=== PATIENT | female | born 1960 | race Caucasian/White ===

== ENCOUNTER → 2017-08-21 | Outpatient (CLI) | payer BC ==
[2017-08-21 07:00] LABS: HCT 44.6 % (34.0-46.0); HGB 14.7 gm/dL (11.4-16.0); MCH 29.1 pg (25.0-35.0); MCHC 32.9 g/dL (31.0-37.0); MCV 88.5 fL (80.0-100.0); Platelet Count 401 k/uL (150-450); RBC 5.04 m/uL (3.80-5.40); WBC 11.6 k/uL (3.8-10.6)
[2017-08-21 07:28] LABS: ALT 76 U/L (9-52); AST 52 U/L (14-36); Albumin 4.7 g/dL (3.5-5.0); Alkaline Phosphatase 121 U/L (38-126); Anion Gap 15 mmol/L; Blood Urea Nitrogen 14 mg/dL (7-17); Calcium 10.2 mg/dL (8.4-10.2); Carbon Dioxide 28 mmol/L (22-30); Chloride 98 mmol/L (98-107); Glucose 110 mg/dL (74-99); Potassium 4.4 mmol/L (3.5-5.1); Sodium 141 mmol/L (137-145)
[2017-08-21 12:05] LABS: Folate, Serum 22.8 ng/mL
[2017-08-21 21:16] LABS: Hemoglobin A1C 5.8 % (4.0-6.0)
== END | disposition home or self-care (01) ==
LOC: LABWHC1 06:42
PROVIDERS: ATTEND Surgery
DX: E66.01 Morbid (severe) obesity due to excess calories (principal)
CPT/HCPCS: 36415; 80053; 82607; 82746; 83036; 84425; 85027; 93005

== ENCOUNTER 2017-09-06 08:08 | Day surgery (SDC) | payer BC ==
[2017-09-01 11:56] VITALS: BMI 40.6
[~2017-09-06 08:08] MED LIST: LACTATED RINGERS 1,000 ML IV SCH; LIDOCAINE 1% 20 ML VIAL (10MG/ML) FOR IV START INTRADERMA PRN
[2017-09-06 08:39] VITALS: TEMP 96
[2017-09-06] MEDS ORDERED: PROPOFOL 10 MG/ML 20 ML VIAL IV ONE (09:24)
[2017-09-06] MEDS ORDERED: MIDAZOLAM 2 MG/2 ML VIAL ONE (09:24)
[2017-09-06] MEDS ORDERED: LIDOCAINE 1% INJ 10MG/ML (20 ML MDV) ONE (09:24)
[2017-09-06] MEDS ORDERED: KETAMINE 10 MG/ML 20 ML VIAL ONE (09:24)
[2017-09-06] MEDS ORDERED: fentaNYL (PF) 50 MCG/ML 2 ML AMP ONE (09:24)
--- NOTE | 2017-09-06 09:30 | P.GSHP ---
History of Present Illness H&P Date: 09/06/17 Chief Complaint: GERD, screening colonoscopy This a 57-year-old female referred from Dr. Kerns. Patient presents today for EGD and colonoscopy. She's had issues with GERD. Past Medical History Past Medical History: Osteoarthritis (OA) History of Any Multi-Drug Resistant Organisms: None Reported Additional Past Surgical History / Comment(s): splenectomy Past Anesthesia/Blood Transfusion Reactions: No Reported Reaction, Motion Sickness Smoking Status: Never smoker - Past Family History Mother Family Medical History: No Reported History Medications and Allergies Home Medications Medication Instructions Recorded Confirmed Type Cholecalciferol [Vitamin D3] 5,000 unit PO DAILY 07/26/17 09/06/17 History Turmeric Root Extract [Turmeric] 500 mg PO DAILY 07/26/17 09/06/17 History Loratadine [Claritin] 10 mg PO DAILY 09/01/17 09/06/17 History Lutein 25 mg PO DAILY 09/01/17 09/06/17 History Vit C/E/Zn/Coppr/Lutein/Zeaxan 1 each PO DAILY 09/01/17 09/06/17 History [Preservision Areds 2 Softgel] Allergies Allergy/AdvReac Type Severity Reaction Status Date / Time Penicillins Allergy Rash/Hives Verified 09/06/17 08:40 Surgical - Exam Vital Signs Temp Pulse Resp BP Pulse Ox 96.0 F L 114 H 16 173/96 96 09/06/17 08:37 09/06/17 08:37 09/06/17 08:37 09/06/17 08:37 09/06/17 08:37 - General well developed, no distress - Eyes PERRL - ENT normal pinna - Neck no masses - Respiratory normal expansion - Cardiovascular Rhythm: regular - Abdomen Abdomen: soft, non tender Assessment and Plan Assessment: GERD we'll perform EGD. We'll also perform screening colonoscopy.
--- NOTE | 2017-09-06 09:55 | P.OP ---
Date of Procedure: 09/06/17 Preoperative Diagnosis: GERD Screening colonoscopy Postoperative Diagnosis: Antral gastritis Small hiatal hernia Mild esophagitis Hemorrhoids Procedure(s) Performed: EGD Colonoscopy Anesthesia: MAC Surgeon: Payam Shelley Pathology: other (Antrum, esophagus) Condition: stable Disposition: PACU Description of Procedure: The patient's placed on the endoscopy table in the lateral position. She received IV sedation. Digital rectal exam was performed which revealed external hemorrhoids. The flexible colonoscope was then placed patient anus passed throughout the entire colon. The ileocecal valve was visually is. The cecum, ascending and transverse colon appeared normal. In the descending; was a few scattered diverticula. Scope was then brought back the rectum and this appeared normal. Scope was withdrawn for patient. Next the gastroscope placed oropharynx passed in the esophagus and stomach. The scope was then placed through the pylorus. The first and second portion of the duodenum. Normal. Scope was then brought back the antrum and this was mildly inflamed. A biopsies performed. The scope was unretroflexed and remainder stomach appeared normal. There was a small hiatal hernia. The GE junction was at 47 is. The distal esophagus appeared mildly inflamed a biopsies performed. The proximal esophagus appeared normal. Scope was withdrawn for patient.
[2017-09-06 10:26] VITALS: BP 144/75; PULSE 73; RESP 16
== END 2017-09-06 10:51 | disposition home or self-care (01) ==
LOC: ORWHC2ENDO 08:08
PROVIDERS: ATTEND Surgery
DX: Z12.11 Encounter for screening for malignant neoplasm of colon (principal); K57.30 Diverticulosis of large intestine without perforation or abscess without bleeding; K20.9 Esophagitis, unspecified; K44.9 Diaphragmatic hernia without obstruction or gangrene; K29.60 Other gastritis without bleeding; K64.4 Residual hemorrhoidal skin tags; M19.90 Unspecified osteoarthritis, unspecified site; Z79.899 Other long term (current) drug therapy; Z88.0 Allergy status to penicillin
CPT/HCPCS: 88305; 88342; 43239; J2250; J2001; J3010; J2704; G0121

== ENCOUNTER → 2017-09-18 | Outpatient (CLI) | payer BC ==
[2017-09-18 14:47] VITALS: BP 148/86; PULSE 104; RESP 16; TEMP 98; BMI 40.1
--- NOTE | 2017-09-18 15:40 | P.HPBAR ---
Bariatric H&P - History & Physicial H&P Date: 09/18/17 History & Physicial: Visit/CC: Working on criteria Patient initial contact: Initial weight: 96.36 kg Initial weight in pounds: 212.44 Height: 5 ft 1 in Initial BMI: 40.1 Last weight: Current weight: 96.36 kg Current weight in pounds: 212.44 Current BMI: 40.1 [place] body weight (based on NIH guidelines): 47.627 kg Excess body weight loss: 0.0% The patient is a 57 year-old F who presents for Bariatric Assessment. Patient presents today for preoperative surgical consultation. This is her second visit to the clinic. The patient is morbidly obese with a BMI of 40. Past Medical History Past Medical History: No Reported History, Osteoarthritis (OA) History of Any Multi-Drug Resistant Organisms: None Reported Additional Past Surgical History / Comment(s): splenectomy Past Anesthesia/Blood Transfusion Reactions: No Reported Reaction Past Psychological History: No Psychological Hx Reported Smoking Status: Never smoker Past Alcohol Use History: None Reported Past Drug Use History: None Reported Surgical - Exam Vital Signs Temp Pulse Resp BP 98.0 F 104 H 16 148/86 09/18/17 14:44 09/18/17 14:44 09/18/17 14:44 09/18/17 14:44 - General well developed, no distress - Eyes PERRL - ENT normal pinna - Neck no masses - Respiratory normal expansion - Cardiovascular Rhythm: regular - Abdomen Abdomen: soft, non tender Bariatric Assessment & Plan Plan: Morbid obesity with severe colitis. Patient will follow-up next month for surgery. We went over the risks and benefits of the sleeve yesterday. Patient aware of risk of conversion O procedure and into the stomach liver spleen vagotomy dysphagia recurrent GERD symptoms she is also aware the risk of gastric staple line disruption, bleeding or perforation. Bariatric Checklist Checklist: Plan: Checklist: EGD: 1. Hiatal hernia: 2. H. Pylori: HgbA1c: Vitamin D: Smoking: Never smoker Primary care physician referral: Psychiatry clearance: Cardiology clearance: Sleep study: Diet journal: VTE risk score: VTE risk level: Rehab needs at discharge:
== END | disposition home or self-care (01) ==
LOC: BARWHC3 14:09
PROVIDERS: ATTEND Surgery
DX: Z01.818 Encounter for other preprocedural examination (principal); E66.01 Morbid (severe) obesity due to excess calories; K52.9 Noninfective gastroenteritis and colitis, unspecified; Z68.41 Body mass index [BMI] 40.0-44.9, adult
CPT/HCPCS: 99211

== ENCOUNTER → 2017-10-02 | Outpatient (CLI) | payer BC ==
[2017-10-02 12:46] VITALS: BMI 41.3
== END | disposition home or self-care (01) ==
LOC: BARWHC3 08:52
PROVIDERS: ATTEND Surgery
DX: E66.01 Morbid (severe) obesity due to excess calories (principal); Z68.41 Body mass index [BMI] 40.0-44.9, adult; Z71.3 Dietary counseling and surveillance
CPT/HCPCS: 97804

== ENCOUNTER → 2017-10-21 | Outpatient (CLI) | payer BC ==
[2017-10-21 07:47] LABS: Basophils # (A) 0.1 k/uL (0-0.2); Basophils % (A) 1 %; Eosinophils # (A) 0.1 k/uL (0-0.7); Eosinophils % (A) 1 %; HCT 43.7 % (34.0-46.0); HGB 14.5 gm/dL (11.4-16.0); Lymphocytes # (A) 2.4 k/uL (1.0-4.8); Lymphocytes % (A) 26 %; MCHC 33.1 g/dL (31.0-37.0); MCV 87.7 fL (80.0-100.0); Monocytes # (A) 0.7 k/uL (0-1.0); Monocytes % (A) 8 %; Neutrophils # (A) 5.7 k/uL (1.3-7.7); Neutrophils % (A) 63 %; Platelet Count 388 k/uL (150-450); RBC 4.99 m/uL (3.80-5.40); RDW 12.9 % (11.5-15.5); WBC 9.2 k/uL (3.8-10.6)
[2017-10-21 08:19] LABS: ALT 54 U/L (9-52); AST 46 U/L (14-36); Albumin 4.7 g/dL (3.5-5.0); Alkaline Phosphatase 117 U/L (38-126); Anion Gap 14 mmol/L; Blood Urea Nitrogen 16 mg/dL (7-17); Calcium 10.1 mg/dL (8.4-10.2); Carbon Dioxide 27 mmol/L (22-30); Chloride 100 mmol/L (98-107); Glucose 97 mg/dL (74-99); Potassium 4.4 mmol/L (3.5-5.1); Sodium 141 mmol/L (137-145); Total Bilirubin 1.2 mg/dL (0.2-1.3)
== END | disposition home or self-care (01) ==
LOC: LABPAT 07:03
PROVIDERS: ATTEND Surgery
DX: Z01.812 Encounter for preprocedural laboratory examination (principal)
CPT/HCPCS: 36415; 80053; 85025

== ENCOUNTER 2017-11-27 09:05 | Inpatient (IN) | payer BC ==
[2017-11-20 09:51] VITALS: BMI 40.6
[~2017-11-27 09:05] MED LIST changes: +DEXAMETHASONE SOD PHOSPHATE 10 MG/ML 1 ML VIAL IV ONE; +ENOXAPARIN 40 MG/0.4 ML SYRINGE SQ ONE; -LACTATED RINGERS 1,000 ML IV SCH; +METHYLENE BLUE 30 MG in DEXTROSE 5% IN WATER 500 ML IRRIGATION ONE; +MORPHINE SULFATE 2 MG/ML SYRINGE IV PRN; +SCOPOLAMINE 1.5MG/72HR PATCH TRANSDERM ONE; +ceFAZolin IN SWFI 2 GM/20 ML SYRINGE IVP ONE
--- NOTE | 2017-11-27 09:54 | P.GSHP ---
History of Present Illness H&P Date: 11/27/17 Chief Complaint: Morbid obesity, BMI 41 This is a 57-year-old female referred from Dr. Kerns. Patient's had lifetime problems obesity. Her BMI is 41. She has multiple comorbidities related to morbid obesity. She presents today for sleeve gastrectomy. Patient aware the risk of surgery including gastric staple line perforation, obstruction, bleeding. She is also a risk conversion to open procedure and possible injury to bowel. 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 Past Medical History Past Medical History: No Reported History History of Any Multi-Drug Resistant Organisms: None Reported Additional Past Surgical History / Comment(s): splenectomy. EGD, COLONOSCOPY Past Anesthesia/Blood Transfusion Reactions: No Reported Reaction Smoking Status: Never smoker - Past Family History Mother Family Medical History: No Reported History Father Family Medical History: Cancer Medications and Allergies Home Medications Medication Instructions Recorded Confirmed Type Cholecalciferol [Vitamin D3] 5,000 unit PO DAILY 07/26/17 11/27/17 History Turmeric Root Extract [Turmeric] 500 mg PO DAILY 07/26/17 11/27/17 History Loratadine [Claritin] 10 mg PO DAILY 09/01/17 11/27/17 History RX: Lutein 25 mg PO DAILY 09/01/17 11/27/17 History Vit C/E/Zn/Coppr/Lutein/Zeaxan 1 each PO DAILY 09/01/17 11/27/17 History [Preservision Areds 2 Softgel] Allergies Allergy/AdvReac Type Severity Reaction Status Date / Time Penicillins Allergy Rash/Hives Verified 11/27/17 09:48 Surgical - Exam - General well developed, no distress - Eyes PERRL - ENT normal pinna - Neck no masses - Respiratory normal expansion - Cardiovascular Rhythm: regular - Abdomen Well healed left paramedian incision Abdomen: soft, non tender Assessment and Plan Assessment: Morbid obesity with BMI 41. We'll perform laparoscopic sleeve gastrectomy.
[2017-11-27] MEDS: LACTATED RINGERS 1,000 ML IV SCH (10:11)
[2017-11-27] MEDS: ONDANSETRON 4 MG/2 ML VIAL IVP ONE ×2 (10:12→12:40)
[2017-11-27] MEDS ORDERED: BUPIVACAINE (PF) 0.25% 30 ML VIAL SQ ONE ×2 (10:34→11:16)
[2017-11-27] MEDS ORDERED: MIDAZOLAM 2 MG/2 ML VIAL ONE (10:56)
[2017-11-27] MEDS ORDERED: fentaNYL (PF) 50 MCG/ML 2 ML AMP ONE (10:56)
[2017-11-27] MEDS ORDERED: LIDOCAINE 1% INJ 10MG/ML (20 ML MDV) ONE (10:56)
[2017-11-27] MEDS ORDERED: ROCURONIUM BROMIDE 10 MG/ML 10 ML VIAL IV ONE (10:56)
[2017-11-27] MEDS ORDERED: GLYCOPYRROLATE 0.2 MG/ML 2 ML VIAL ONE (10:56)
[2017-11-27] MEDS ORDERED: MORPHINE SULFATE 10 MG/ML SYRINGE ONE (10:56)
[2017-11-27] MEDS ORDERED: NEOSTIGMINE 1 MG/ML 10 ML VIAL ONE (10:56)
[2017-11-27] MEDS ORDERED: KETOROLAC 30 MG/ML 1 ML VIAL ONE (10:56)
[2017-11-27] MEDS ORDERED: SUCCINYLCHOLINE CHLORIDE 100 MG/5 ML SYR IV ONE (10:56)
[2017-11-27] MEDS ORDERED: PROPOFOL 10 MG/ML 20 ML VIAL IV ONE (10:56)
[2017-11-27] MEDS ORDERED: HYOSCYAMINE ORAL DROPS 1.875 MG/15 ML BOTTLE PO PRN (12:39)
[2017-11-27] MEDS ORDERED: ACETAMINOPHEN IV (For NPO) 1,000 MG in EMPTY BAG 1 BAG IVPB ONE (12:39)
[2017-11-27] MEDS ORDERED: MORPHINE SULFATE 4MG/4ML SYRG IVP PRN ×2 (12:39→12:42)
[2017-11-27] MEDS ORDERED: SIMETHICONE 40 MG/0.6 ML DROPS 2,000 MG/30 ML BOTTLE PO PRN (12:39)
[2017-11-27] MEDS ORDERED: NALOXONE 0.4 MG/ML 1 ML VIAL IV PRN (12:39)
[2017-11-27] MEDS ORDERED: ONDANSETRON 4 MG/2 ML VIAL IVP PRN (12:39)
--- NOTE | 2017-11-27 12:39 | P.OP ---
Date of Procedure: 11/27/17 Preoperative Diagnosis: Morbid obesity, BMI 41 Postoperative Diagnosis: Morbid obesity Adhesions Procedure(s) Performed: Laparoscopic lysis of adhesions Laparoscopic sleeve gastrectomy Repair of hiatal hernia Anesthesia: MARTIN Surgeon: Payam Shelley Estimated Blood Loss (ml): 5 Pathology: other (Gastric remnant) Condition: stable Description of Procedure: LThe patient was placed on the operating room table in the supine position. She received general anesthesia and then was placed in dorsal lithotomy position. Her abdomen was prepped and draped in sterile fashion. The skin incision sites were anesthetized 1% local Xylocaine. And then the skin was incised with an 11 blade in the left lateral position. Using a blade less trocar under direct visualization the peritoneal cavity was entered. The abdomen was insufflated and then a 5 mm laparoscope was placed into the peritoneal cavity. A 5 mm trocar was placed in the right epigastric, and right lateral position. A 15 mm trocar was placed in the supra-umbilical position and another 5 mm trocar was placed in the left lateral position. The left lateral lobe of the liver was retracted. The stomach was visualized. Patient had a previous splenectomy. There adhesions noted in the midline epigastric area. Lysed using the Harmonic scissors. Approximately 15 minutes of operative time used to lyse adhesions. The greater curvature of the stomach was then dissected using the Harmonic scissors. The dissection occurred approximately 5 cm from the pylorus to the level of the left karon. There was a hiatal hernia seen. The hiatus was closed with 2-0 Ethibond suture. At this point a 40-Ivorian bougie dilator was placed the oropharynx and passed into the esophagus and into the stomach by the [employer] TROLLEY. The sleeve gastrectomy was performed by using the powered echelon stapler with a seam guard buttress material. Sequential firings of the stapler were performed. The gastric remnant was then brought out through the 15 mm trocar site. The dilator was withdrawn. And a orogastric tube was replaced into the stomach. The stomach was insufflated with 200 mL of methylene blue normal saline. There was no evidence of extravasation. The abdomen was irrigated there is no bleeding seen. The Reynaldo-Akshat device was used to close the 15 mm trocar with 0 Vicryl. Skin was closed with interrupted 3-0 Monocryl sutures once the trochars withdrawn. Dermabond dressing was applied. Patient was sent to recovery in stable condition.
[2017-11-27] MEDS ORDERED: HYDROcodone/APAP 7.5-325MG 1 EACH TAB PO PRN ×2 (12:42→12:43)
[2017-11-27] MEDS ORDERED: MORPHINE SULFATE 4MG/4ML SYRG IVP ONE (12:58)
[2017-11-27] MEDS ORDERED: SODIUM CHLORIDE 0.9% 1,000 ML IV ONE (13:06)
[2017-11-27] MEDS: ALBUTEROL NEBULIZED 2.5 MG/3 ML INHALATION SCH ×2 (16:38→20:11)
[2017-11-27] MEDS: KETOROLAC 30 MG/ML 1 ML VIAL IVP SCH ×2 (18:06→23:48)
[2017-11-27] MEDS: 0.9% NACL WITH KCL 20 MEQ/L 1,000 ML IV SCH ×2 (18:06→21:44)
[2017-11-27] MEDS: FAMOTIDINE 20 MG TAB PO SCH (22:56)
[2017-11-28] MEDS: 0.9% NACL WITH KCL 20 MEQ/L 1,000 ML IV SCH (05:38)
[2017-11-28] MEDS: KETOROLAC 30 MG/ML 1 ML VIAL IVP SCH ×2 (05:38→12:29)
[2017-11-28 07:31] LABS: Basophils % (A) 0 %; Eosinophils % (A) 0 %; HCT 37.9 % (34.0-46.0); HGB 12.5 gm/dL (11.4-16.0); Lymphocytes # (A) 1.8 k/uL (1.0-4.8); Lymphocytes % (A) 15 %; MCH 29.2 pg (25.0-35.0); MCHC 32.8 g/dL (31.0-37.0); MCV 88.9 fL (80.0-100.0); Mean Platelet Volume 7.1; Monocytes % (A) 8 %; Neutrophils # (A) 8.9 k/uL (1.3-7.7); Neutrophils % (A) 75 %; Platelet Count 267 k/uL (150-450); RBC 4.27 m/uL (3.80-5.40); RDW 13.1 % (11.5-15.5); WBC 11.9 k/uL (3.8-10.6)
[2017-11-28 07:54] LABS: Anion Gap 15 mmol/L; Blood Urea Nitrogen 8 mg/dL (7-17); Carbon Dioxide 21 mmol/L (22-30); Chloride 107 mmol/L (98-107); Magnesium 1.9 mg/dL (1.6-2.3); Phosphorus 3.1 mg/dL (2.5-4.5); Potassium 4.4 mmol/L (3.5-5.1); Sodium 143 mmol/L (137-145)
[2017-11-28] MEDS ORDERED: 1: MVI, ADULT NO.4 WITH VIT K 10 ML, THIAMINE 100 MG, FOLIC ACID 1 MG, POTASSIUM CHLORID IV SCH ×6 (08:00)
[2017-11-28] MEDS ORDERED: ENOXAPARIN 40 MG/0.4 ML SYRINGE SQ SCH (09:00)
[2017-11-28] MEDS ORDERED: PANTOPRAZOLE 40 MG/10 ML VIAL IV SCH (09:00)
[2017-11-28] MEDS: LACTATED RINGERS 1,000 ML IV SCH (09:09)
[2017-11-28] MEDS ORDERED: HYDROmorphone 4 MG TABLET PO PRN ×2 (09:11→13:00)
[2017-11-28] MEDS: FAMOTIDINE 20 MG TAB PO SCH (09:12)
[2017-11-28] MEDS ORDERED: MORPHINE ORAL SOLN 10 MG/5 ML CUP PO PRN ×2 (09:14→13:00)
[2017-11-28] MEDS: ALBUTEROL NEBULIZED 2.5 MG/3 ML INHALATION SCH ×2 (10:04→10:56)
[2017-11-28 10:10] VITALS: BP 134/84; PULSE 79; RESP 18; TEMP 98.6
--- NOTE | 2017-11-28 10:44 | P.PN ---
Subjective Progress Note Date: 11/28/17 57-year-old female seen at bedside. Patient states has been up ambulating in the [place] this morning. Passing gas. No nausea no vomiting. Tolerating bariatric clear diet no stool surgical incision site dry soft abdomen soft nondistended pain medication effective for pain control Postop November 27 laparoscopically lysis of adhesions sleeve gastrectomy for treatment morbid obesity Objective - Vital Signs Vital signs: Vital Signs Temp 98.6 F 11/28/17 08:00 Pulse 79 11/28/17 08:00 Resp 18 11/28/17 08:00 BP 134/84 11/28/17 08:00 Pulse Ox 96 11/28/17 08:00 Intake & Output 11/27/17 11/28/17 11/28/17 18:59 06:59 18:59 Intake Total 1001 Output Total 10 Balance 991 Intake: IV 1001 Output: Estimated Blood Loss 10 Other: # Voids 1 2 - Exam Physical exam Pleasant 57-year-old female sitting up in bed states just ambulated and hallway Lungs adequate air movement bilaterally on room air sats greater than 95% no cough noted Heart S1-S2 audible regular heart rate in the 70s to 80s Abdomen surgical incision sites dry dressing soft nondistended bowel tones active tolerating bariatric clear no nausea no vomiting urinating no difficulty extremities no edema noted - Labs CBC & Chem 7: 11/28/17 06:57 11/28/17 06:57 Labs: Abnormal Lab Results - Last 24 Hours (Table) 11/28/17 11/28/17 Range/Units 06:57 06:57 WBC 11.9 H (3.8-10.6) k/uL Neutrophils # 8.9 H (1.3-7.7) k/uL Carbon Dioxide 21 L (22-30) mmol/L Assessment and Plan Assessment: Impression Morbid obesity BMI 40 Postop 27 of November repair of hiatal hernia, laparoscopic sleeve gastrectomy, lysis of adhesions Mild leukocytosis suspect reactive Plan Continue postop bariatric care Continue bariatric clear diet Increase activity Pain control DVT and GI prophylaxis Home meds as appropriate Further recommendations pending The above impression and plan of care have been discussed and directed by signing physician. Lalita Felix nurse practitioner acting as scribe for signing physician.
--- NOTE | 2017-11-28 11:17 | FL ---
EXAMINATION TYPE: FL UGI DATE OF EXAM: 11/28/2017 LIMITED UGI: CLINICAL HISTORY: Morbid Obesity, gastric sleeve surgery yesterday. History of splenectomy as child. TECHNIQUE: Limited esophagram is performed utilizing 20 oz of contrast. A total of 33 seconds of flu oroscopic time was utilized during procedure. 16 spot images were saved. COMPARISON: None. FINDINGS: The patient swallowed contrast without difficulty or delay. Esophageal peristalsis and mo tility are within normal limits. There is good flow of contrast along the diaphragmatic hiatus into proximal stomach and subsequent flow into gastric sleeve at proximal anastomosis. There is good flow from distal sleeve through distal anastomosis into pylorus and duodenal sweep. Patient remains asympt omatic. There is no evidence of contrast extravasation to suggest leak. IMPRESSION: No evidence of leak or significant obstruction status post recent gastric sleeve surgery yesterday.
--- NOTE | 2017-11-28 13:53 | P.DS ---
Providers Date of admission: 11/27/17 09:20 Expected date of discharge: 11/28/17 Attending physician: Payam Paredes Consults: 11/27/17 12:39 Consult Physician Routine Consulting Provider: Dave Amador Consult Reason/Comments: med manage Do you want consulting provider notified?: Yes Primary care physician: Janet [facility] Hospital Course: 57-year-old female who has had a lifetime problem with obesity. The BMI was 41. Patient has had multiple comorbidities related to morbid obesity. Presented to undergo an elective sleeve gastrectomy for morbid obesity. There were no postop events. Patient was tolerating the bariatric clear diet up ambulating in the hallway. Stated having very little abdominal pain . But urinating without difficulty. Was felt to be clinically stable and appropriate proceed with a discharge to home Impression Morbid obesity BMI 40 Postop 27 of November repair of hiatal hernia, laparoscopic sleeve gastrectomy, lysis of adhesions Mild leukocytosis suspect reactive The above impression and plan of care have been discussed and directed by signing physician. Lalita Felix nurse practitioner acting as scribe for signing physician. Plan - Discharge Summary Discharge Rx Participant: Yes New Discharge Prescriptions: New Bisacodyl [Dulcolax] 5 mg PO DAILY PRN #10 tablet. PRN Reason: Constipation Ondansetron Odt [Zofran Odt] 4 mg PO Q8HR PRN #9 tab PRN Reason: Nausea Simethicone 40 mg/0.6 ml Drops [Mylicon Drops] 40 mg PO PCHS PRN #30 ml PRN Reason: Gas HYDROcodone/APAP 7.5-325MG [[place] 7.5-325] 1 tab PO Q4H PRN #12 tab PRN Reason: Mild Breakthrough Pain Ibuprofen [Motrin] 200 mg PO Q6HR PRN #15 tab PRN Reason: Mild Breakthrough Pain Acetaminophen Tab [Tylenol Tab] 650 mg PO Q4H #30 tablet Discontinued Cholecalciferol [Vitamin D3] 5,000 unit PO DAILY Turmeric Root Extract [Turmeric] 500 mg PO DAILY Vit C/E/Zn/Coppr/Lutein/Zeaxan [Preservision Areds 2 Softgel] 1 cap PO DAILY No Action Lutein 20 mg PO DAILY Loratadine [Claritin] 10 mg PO DAILY Discharge Medication List Loratadine [Claritin] 10 mg PO DAILY 09/01/17 [History] Lutein 20 mg PO DAILY 09/01/17 [History] Acetaminophen Tab [Tylenol Tab] 650 mg PO Q4H #30 tablet 11/28/17 [Rx] Bisacodyl [Dulcolax] 5 mg PO DAILY PRN #10 tablet. 11/28/17 [Rx] HYDROcodone/APAP 7.5-325MG [[place] 7.5-325] 1 tab PO Q4H PRN #12 tab 11/28/17 [Rx ] Ibuprofen [Motrin] 200 mg PO Q6HR PRN #15 tab 11/28/17 [Rx] Ondansetron Odt [Zofran Odt] 4 mg PO Q8HR PRN #9 tab 11/28/17 [Rx] Simethicone 40 mg/0.6 ml Drops [Mylicon Drops] 40 mg PO PCHS PRN #30 ml [Rx] Follow up Appointment(s)/Referral(s): Payam Paredes MD [STAFF PHYSICIAN] - 1 Week Activity/Diet/Wound Care/Special Instructions: No tub bath for six weeks. Shower daily. No lifting over 10 pounds for the next 6 weeks. Do not resume taking vitamins until seen in a follow-up visit with Dr. paredes May use ice packs to surgical site. No driving while taking narcotic for pain. Continue with the bariatric clear diet as ordered Avoid constipation use [id number] stool softeners as needed Do not remove the plastic dressings from surgical sites May use plain Tylenol 1 every 4-6 hours when necessary pain May use [id number] Motrin 200 mg 1 every 4-6 hours when necessary pain Discharge Disposition: HOME SELF-CARE
--- NOTE | 2017-11-29 03:12 | CONS ---
CONSULTATION REASON FOR CONSULTATION: Advice regarding splenectomy and other medical issues requested by surgery. HISTORY OF PRESENT ILLNESS: This 57-year-old woman with a past medical history of splenectomy, history of EGD, colonoscopy underwent a gastric sleeve surgery, as well as laparoscopic lysis of adhesions by Dr. Shelley. There is no history of fever, rigors. No headache, loss of consciousness. PAST MEDICAL HISTORY: Splenectomy, EGD, colonoscopy. ALLERGIES: PENICILLIN. FAMILY HISTORY: No history of heart disease or strokes in the family. SOCIAL HISTORY: No history of smoking. No alcohol intake. HOME MEDICATIONS: 1. Lutein. 2. Claritin 10 mg daily. 3. Mylicon drops daily. 4. Zofran 4 mg q.8h p.r.n. 5. Motrin 200 mg q.6h p.r.n. 6. [place] 1 tablet q.4h p.r.n. 7. Dulcolax 5 mg daily p.r.n. 8. Tylenol 650 q.4h p.r.n. REVIEW OF SYSTEMS: CARDIOVASCULAR: No angina. RESPIRATORY: No cough or hemoptysis. GI: No nausea. : No dysuria. NERVOUS SYSTEM: No numbness or weakness. ALLERGY/IMMUNOLOGY: No asthma or hayfever. MUSCULOSKELETAL: As mentioned earlier. HEMATOLOGY/ONCOLOGY: No history of anemia. ENDOCRINE: No history of diabetes or hypothyroidism. CONSTITUTIONAL: As mentioned earlier. DERMATOLOGY: Negative. RHEUMATOLOGY: Negative. PSYCHIATRIC: As mentioned earlier. PHYSICAL EXAMINATION: Alert, oriented x3. Pulse 79, blood pressure 135/84, respiration 18, temperature 98.6, pulse ox 96% on room air. HEENT: Conjunctivae normal. Oral mucosa moist. Neck is no jugular venous distention. No carotid bruit. No lymph node enlargement. CARDIOVASCULAR: S1 and S2. RESPIRATORY: Breath sounds are diminished in the bases. No rhonchi. No crackles. ABDOMEN: Soft, nontender. No mass palpable. Soft, status post surgery. LEGS: No edema, no swelling. NERVOUS SYSTEM: As mentioned earlier, moves all 4 limbs, no focal or motor deficits. LYMPHATICS: No lymphadenopathy in neck or axillae. SKIN: No ulcer, rash or bleeding. LABS: WBC 11.9. ASSESSMENT: 1. Status post laparoscopic lysis of adhesions and laparoscopic gastric sleeve gastrectomy, repair of hiatal hernia. 2. Increased white blood count, possibly reactive. 3. History of splenectomy. 4. History of EGD and colonoscopy. RECOMMENDATION AND DISCUSSION: Recommend to continue current management and symptomatic treatment. DVT prophylaxis. Incentive spirometry. Recommend to resume the home medications on an outpatient basis. Also recommend close follow up with primary physician in the outpatient setting. We will follow the patient closely with you. Thank you, Dr. Shelley for letting us participate in the care of this patient. MMODL / IJN: [id number] /
== END 2017-11-28 16:02 | disposition home or self-care (01) | DRG 621 ==
LOC: 2ORMAIN 09:20 → 3SUR 12:11
PROVIDERS: ADMIT Surgery; ATTEND Surgery
PROC: 0DNW4ZZ Release Peritoneum, Percutaneous Endoscopic Approach (ICD-10-PCS; 2017-11-27)
PROC: 0BQT4ZZ Repair Diaphragm, Percutaneous Endoscopic Approach (ICD-10-PCS; 2017-11-27)
PROC: 0DB64Z3 Excision of Stomach, Percutaneous Endoscopic Approach, Vertical (ICD-10-PCS; principal; 2017-11-27 11:40)
DX: E66.01 Morbid (severe) obesity due to excess calories (principal); J30.2 Other seasonal allergic rhinitis; K44.9 Diaphragmatic hernia without obstruction or gangrene; K66.0 Peritoneal adhesions (postprocedural) (postinfection); Z79.891 Long term (current) use of opiate analgesic; Z79.899 Other long term (current) drug therapy; Z80.9 Family history of malignant neoplasm, unspecified; Z90.81 Acquired absence of spleen; Z68.41 Body mass index [BMI] 40.0-44.9, adult; Z88.0 Allergy status to penicillin; Z87.19 Personal history of other diseases of the digestive system
CPT/HCPCS: 74240; 80051; 82310; 82565; 83735; 84100; 84520; 85025; 88307; 94640; 94760

== ENCOUNTER → 2017-12-04 | Outpatient (CLI) | payer BC ==
[2017-12-04 14:47] VITALS: BP 126/75; PULSE 94; RESP 16; TEMP 97.9; BMI 36.8
--- NOTE | 2017-12-15 13:16 | P.HPBAR ---
Bariatric H&P - History & Physicial H&P Date: 12/04/17 History & Physicial: Visit/CC: post sleeve Patient initial contact: Initial weight: 96.36 kg Initial weight in pounds: 212.44 Height: 5 ft 1 in Initial BMI: 40.1 Last weight: 219 Current weight: 88.536 kg Current weight in pounds: 195.19 Current BMI: 36.8 [place] body weight (based on NIH guidelines): 47.627 kg Excess body weight loss: 16.0% The patient is a 57 year-old F who presents for Bariatric Assessment.the patient presents today for sleeve gastrectomy follow-up. She's had good weight loss.she's had some mild complaints of GERD. Past Medical History Past Medical History: No Reported History History of Any Multi-Drug Resistant Organisms: None Reported Additional Past Surgical History / Comment(s): splenectomy. EGD, COLONOSCOPY, gastric sleeve 11/27/17 Past Anesthesia/Blood Transfusion Reactions: No Reported Reaction Smoking Status: Never smoker - Past Family History Mother Family Medical History: No Reported History Father Family Medical History: Cancer Surgical - Exam Vital Signs Temp Pulse Resp BP 97.9 F 94 16 126/75 12/04/17 14:45 12/04/17 14:45 12/04/17 14:45 12/04/17 14:45 - General well developed, no distress - Eyes PERRL - Abdomen Abdomen: soft, non tender Bariatric Assessment & Plan Plan: status post sleeve gastrectomy. Patient stated that well. She'll follow-up in 2 weeks. Bariatric Checklist Checklist: Plan: Checklist: EGD: 1. Hiatal hernia: 2. H. Pylori: HgbA1c: Vitamin D: Smoking: Never smoker Primary care physician referral: Psychiatry clearance: Cardiology clearance: Sleep study: Diet journal: VTE risk score: VTE risk level: Rehab needs at discharge:
== END | disposition home or self-care (01) ==
LOC: BARWHC3 13:54
PROVIDERS: ATTEND Surgery
DX: Z09 Encounter for follow-up examination after completed treatment for conditions other than malignant neoplasm (principal); K21.9 Gastro-esophageal reflux disease without esophagitis; Z98.84 Bariatric surgery status; Z98.890 Other specified postprocedural states
CPT/HCPCS: 99211

== ENCOUNTER → 2017-12-25 | Outpatient (CLI) | payer BC ==
[2017-12-25 15:55] VITALS: BP 131/83; PULSE 88; RESP 14; TEMP 97.6; BMI 35.6
--- NOTE | 2017-12-25 15:57 | P.HPBAR ---
Bariatric H&P - History & Physicial H&P Date: 12/25/17 History & Physicial: Visit/CC: 1mo. sleeve f/u Patient initial contact: Initial weight: 96.36 kg Initial weight in pounds: 212.44 Height: 5 ft 1 in Initial BMI: 40.1 Last weight: Current weight: 85.502 kg Current weight in pounds: 188.50 Current BMI: 35.6 [place] body weight (based on NIH guidelines): 47.627 kg Excess body weight loss: 22.2% The patient is a 57 year-old F who presents for Bariatric Assessment. Patient presents today for sleeve gastrectomy follow-up. She is 1 month postop. She's had some GERD. She denies any abdominal pain. Past Medical History Past Medical History: No Reported History History of Any Multi-Drug Resistant Organisms: None Reported Additional Past Surgical History / Comment(s): splenectomy. EGD, COLONOSCOPY, gastric sleeve 11/27/17 Past Anesthesia/Blood Transfusion Reactions: No Reported Reaction Smoking Status: Never smoker - Past Family History Mother Family Medical History: No Reported History Father Family Medical History: Cancer Surgical - Exam Vital Signs Temp Pulse Resp BP 97.6 F 88 14 131/83 12/25/17 15:41 12/25/17 15:41 12/25/17 15:41 12/25/17 15:41 - General well developed, no distress - Eyes PERRL - ENT normal pinna - Neck no masses - Respiratory normal expansion - Cardiovascular Rhythm: regular - Abdomen Abdomen: soft, non tender Bariatric Assessment & Plan Plan: Status post sleeve yesterday. Patient has some GERD symptoms. She will to place an upper lobe. She'll follow-up in one month. Bariatric Checklist Checklist: Plan: Checklist: EGD: 1. Hiatal hernia: 2. H. Pylori: HgbA1c: Vitamin D: Smoking: Never smoker Primary care physician referral: freddy Barlow ([place]) Psychiatry clearance: Cardiology clearance: Sleep study: Diet journal: VTE risk score: VTE risk level: Rehab needs at discharge:
[2017-12-25 16:28] LABS: HCT 42.8 % (34.0-46.0); HGB 14.1 gm/dL (11.4-16.0); MCH 29.5 pg (25.0-35.0); MCV 89.5 fL (80.0-100.0); Mean Platelet Volume 6.9; Platelet Count 287 k/uL (150-450); RBC 4.78 m/uL (3.80-5.40); RDW 13.4 % (11.5-15.5)
[2017-12-25 17:16] LABS: ALT 37 U/L (9-52); AST 30 U/L (14-36); Albumin 4.5 g/dL (3.5-5.0); Alkaline Phosphatase 80 U/L (38-126); Anion Gap 14 mmol/L; Blood Urea Nitrogen 14 mg/dL (7-17); Carbon Dioxide 29 mmol/L (22-30); Chloride 103 mmol/L (98-107); Glucose 102 mg/dL (74-99); Potassium 4.6 mmol/L (3.5-5.1); Sodium 146 mmol/L (137-145); Total Bilirubin 0.8 mg/dL (0.2-1.3); Total Protein 7.3 g/dL (6.3-8.2)
== END | disposition home or self-care (01) ==
LOC: BARWHC3 15:27
PROVIDERS: ATTEND Surgery
DX: Z09 Encounter for follow-up examination after completed treatment for conditions other than malignant neoplasm (principal); K21.9 Gastro-esophageal reflux disease without esophagitis; E55.9 Vitamin D deficiency, unspecified; Z98.84 Bariatric surgery status; Z98.890 Other specified postprocedural states
CPT/HCPCS: 36415; 80053; 82306; 85027; 99211